=== PATIENT | female | born 1995 | race African-American/Black ===

== ENCOUNTER 2019-09-09 14:17 | Emergency (ER) | payer SELFPAY ==
[~2019-09-09] VITALS: Ht 160 cm; Wt 59.0 kg
[2019-09-09] MEDS ORDERED: ACYCLOVIR 200 MG CAPSULE. PO ONE (15:30)
[2019-09-09] MEDS ORDERED: predniSONE 20 MG TABLET PO ONE (15:30)
--- NOTE | 2019-09-09 16:35 | RAD ---
Examination: CT HEAD WO CONTRAST History: Left facial paralysis and paresthesias Comparison/Correlation: None Findings: Axial images of the head were obtained without contrast. Ventricles are normal size. No intracranial hemorrhage, midline shift, or mass effect. There is a very low attenuation 0.4 cm diameter lesion involving the posterior high left parietal lobe on axial image 17. No surrounding edema or other suspicious associated finding. This is superior to the occipital horn. Bony structures are unremarkable. Impression: No intracranial hemorrhage. Indeterminate small low-attenuation lesion. No aggressive or otherwise suspicious features. Correlate clinically regarding further evaluation with MRI without and with contrast if able. PQRS Compliance Statement: One or more of the following individualized dose reduction techniques were utilized for this examination: 1. Automated exposure control 2. Adjustment of the mA and/or kV according to patient size 3. Use of iterative reconstruction technique Electronically signed by: Rudolph Ellison MD (09/09/2019 4:31 PM) [facility]
--- NOTE | 2019-09-09 16:49 | PHYS DOC ---
Past Medical History Past Medical History: No Pertinent History Past Surgical History: No Surgical History Alcohol Use: None Drug Use: None Adult General Chief Complaint Chief Complaint: OTHER COMPLAINTS HPI HPI Patient is a 24 year old female patient who presents to the ED today complaining of left-sided facial droop and numbness that began on Saturday. Patient states she woke up with the have facial numbness and in this condition. Patient reports she's had a cough and nasal congestion for couple weeks. Denies any fever. Denies any headache denies any chest pain or shortness of breath. Review of Systems Review of Systems Constitutional: Denies fever or chills [] Eyes: Denies change in visual acuity, redness, or eye pain [] HENT: Denies nasal congestion or sore throat [] Respiratory: Denies cough or shortness of breath [] Cardiovascular: No additional information not addressed in HPI [] GI: Denies abdominal pain, nausea, vomiting, bloody stools or diarrhea [] : Denies dysuria or hematuria [] Musculoskeletal: Denies back pain or joint pain [] Integument: Denies rash or skin lesions [] Neurologic: Reports left-sided facial droop and numbness. Denies headache, focal weakness or sensory changes [] All other systems were reviewed and found to be within normal limits, except as documented in this note. Current Medications Current Medications Current Medications Medications (Trade) Dose Ordered Sig/Vira Start Time Stop Time Status Last Admin Dose Admin Acyclovir (Zovirax) 400 mg 1X ONCE 09/09/19 15:30 09/09/19 15:31 DC 09/09/19 15:15 400 MG Prednisone (Prednisone) 60 mg 1X ONCE 09/09/19 15:30 09/09/19 15:31 DC 09/09/19 15:15 60 MG Allergies Allergies Allergies Coded Allergies Type Severity Reaction Last Updated Verified No Known Drug Allergies 12/24/14 No Physical Exam Physical Exam Constitutional: Well developed, well nourished, no acute distress, non-toxic appearance. [] HENT: Normocephalic, atraumatic, bilateral external ears normal, oropharynx moist, no oral exudates, nose normal. [] Eyes: PERRLA, EOMI, conjunctiva normal, no discharge. [] Neck: Normal range of motion, no tenderness, supple, no stridor. [] Cardiovascular:Heart rate regular rhythm, no murmur [] Lungs & Thorax: Bilateral breath sounds clear to auscultation [] Abdomen: Bowel sounds normal, soft, no tenderness, no masses, no pulsatile masses. [] Skin: Warm, dry, no erythema, no rash. [] Back: No tenderness, no CVA tenderness. [] Extremities: No tenderness, no cyanosis, no clubbing, ROM intact, no edema. [] Neurologic: Alert and oriented X 3, normal motor function, normal sensory function, no focal deficits noted. Cranial nerves II through XII intact. Left- sided facial droop noted with decreased sensation to the left Psychologic: Affect normal, judgement normal, mood normal. [] Current Patient Data Vital Signs Vital Signs Date Time Temp Pulse Resp B/P (MAP) Pulse Ox O2 Delivery O2 Flow Rate FiO2 09/09/19 14:45 98.4 90 18 137/90 (106) 97 Room Air 98.4 EKG EKG [] Radiology/Procedures Radiology/Procedures PROCEDURE: CT HEAD WO CONTRAST Examination: CT HEAD WO CONTRAST History: Left facial paralysis and paresthesias Comparison/Correlation: None Findings: Axial images of the head were obtained without contrast. Ventricles are normal size. No intracranial hemorrhage, midline shift, or mass effect. There is a very low attenuation 0.4 cm diameter lesion involving the posterior high left parietal lobe on axial image 17. No surrounding edema or other suspicious associated finding. This is superior to the occipital horn. Bony structures are unremarkable. Impression: No intracranial hemorrhage. Indeterminate small low-attenuation lesion. No aggressive or otherwise suspicious features. Correlate clinically regarding further evaluation with MRI without and with contrast if able. RS Compliance Statement: One or more of the following individualized dose reduction techniques were utilized for this examination: 1. Automated exposure control 2. Adjustment of the mA and/or kV according to patient size 3. Use of iterative reconstruction technique Electronically signed by: Rudolph Valverde MD (09/09/2019 4:31 PM) [facility] DICTATED and SIGNED BY: RUDOLPH VALVERDE MD DATE: 09/09/191630 Course & Med Decision Making Course & Med Decision Making Pertinent Labs and Imaging studies reviewed. (See chart for details) This is a 24-year-old female patient presenting to the ED today with facial droop and numbness that began on Saturday which is 3 days ago when she woke up, off note patient had symptoms of upper respiratory infection for a couple weeks. Stroke scale is 3. CT of the head negative for any bleeding, noted for indeterminate small low- attenuation lesion on the left side of the brain. Spoke with Dr. Sejal Fisher regarding results, he requested patient to be discharged to home with Maldonado's palsy management and follow-up for an outpatient MRI. Patient was discharged on prednisone and acyclovir. Provided information on follow-up. Dragon Disclaimer Dragon Disclaimer This electronic medical record was generated, in whole or in part, using a voice recognition dictation system. NIHSS Stroke Scale NIH Stroke Scale: NIH Stroke Scale Response (Comments) Value Level of Consciousness: 0 Alert/Responsive 0 LOC Questions: 0 Answers both correctly 0 Best Gaze: 1 Partial gaze palsy 1 Visual: 0 No visual loss 0 Facial Palsy: 2 Partial paralysis 2 Motor - Left Arm 0 No drift 0 Motor - Right Arm 0 No drift 0 Motor - Left Leg 0 No drift 0 Motor: Right Leg 0 No drift 0 Limb Ataxia: 0 Absent 0 Sensory: 0 No loss 0 Best Language: 0 Normal 0 Dysathria: 0 Normal 0 Extinction and Inattention: 0 Normal 0 Total 3 Departure Departure Impression: Primary Impression: Maldonado's palsy Disposition: 01 HOME, SELF-CARE Condition: STABLE Referrals: NO PCP (PCP) IZZY SOTO MD call his office tomorrow and set up a follow up outpatient MRI Patient Instructions: Maldonado's Palsy-Brief Additional Instructions: You were evaluated in the emergency room with symptoms consistent of Maldonado's pal sy. Please contact the provided neurologist in the course of tomorrow and they will set you up for follow-up MRI as an outpatient. Take the prescribed medications as ordered. Scripts Prednisone (PREDNISONE ) 10 Mg Tablet 10 MG PO DAILY, #60 TAB 0 Refills Dispense as follows 60 mg daily for 5 days then 25mg BID for 10 days. Dispense sufficient amount. Prov: AMBIKA PHILLIPS APRN 09/09/19 Valacyclovir Hcl (VALACYCLOVIR) 1,000 Mg Tablet 1 TAB PO TID, #21 TAB Prov: AMBIKA PHILLIPS APRN 09/09/19 AMBIKA PHILLIPS APRN Sep 09, 2019 16:49
[2019-09-09 17:02] VITALS: BP 121/80
[2019-09-09] MEDS ORDERED: VALA1000 PO (17:08)
[2019-09-09] MEDS ORDERED: PRED-220 PO (17:08)
== END 2019-09-09 17:24 | disposition home or self-care (01) ==
LOC: ER 14:17
DX: G51.0 Bell's palsy (principal)
CPT/HCPCS: 70450; 99284; J7512